=== PATIENT | female | born 2000 | race African-American/Black ===

== ENCOUNTER 2019-07-17 16:16 | Emergency (ER) | payer OTHER, SELFPAY ==
[2019-07-17 16:30] VITALS: BP 131/80; PULSE 97; RESP 16; TEMP 37.1; O2SAT 98
--- NOTE | 2019-07-17 16:30 | ED.GENADULT ---
HPI - General Adult General Chief complaint: Back Pain/Injury Stated complaint: Fall/Lower Back Pain Time Seen by Provider: 07/17/19 16:30 Source: patient Mode of arrival: ambulatory Limitations: no limitations History of Present Illness HPI narrative: 19-year-old female patient presents to the [facility] with complaints of left-sided low back pain. Patient states about 2 to 3 days ago she slipped and fell on some wooden stairs and hit her back. Patient states it is gotten progressively worse. Patient states she has tried a heating pad over the back but denies taking anything for pain. Patient denies any numbness or tingling down the legs. Patient denies any loss of bowel or bladder control. Related Data Home Medications Medication Instructions Recorded Confirmed levonorgestrel-ethinyl estrad 1 tablet DAILY 04/18/19 07/17/19 [Vienva] Allergies Allergy/AdvReac Type Severity Reaction Status Date / Time No Known Allergies Allergy Verified 07/17/19 16:30 Review of Systems Review of Systems: Narrative: CONSTITUTIONAL: Denies fever, chills, or sweats. EYES: Denies visual changes, redness, or discharge. ENT: Denies rhinorrhea, congestion, sore throat, or otalgia. CARDIOVASCULAR: Denies chest pain, palpitations, or edema. RESPIRATORY: Denies cough or dyspnea. GASTROINTESTINAL: Denies abdominal pain, nausea, vomiting, or diarrhea. GENITOURINARY: Denies dysuria or hematuria. SKIN: Denies rash or itching. MUSCULOSKELETAL: Denies back pain, joint pain, or myalgia. Positive for low back pain NEUROLOGIC: Denies headache, numbness, or weakness. PSYCHIATRIC: Denies anxiety or depression. PMFSH Social History Social History Gender identity (if verbalized by the patient): Female Exam Narrative: Exam Narrative: GENERAL: Well-appearing, well-nourished, and in no acute distress. HEAD: Normocephalic, atraumatic. EYES: PERRLA and EOMI. ENT: Nares clear, no rhinorrhea or epistaxis. Mucous membranes moist. NECK: Supple. No lymphadenopathy CHEST: Clear to auscultation. No respiratory distress. HEART: Regular rate and rhythm. No murmur heard. Normal peripheral pulses. ABDOMEN: Soft, nontender, nondistended, normal active bowel sounds. EXTREMITIES: Normal range of motion. No edema. BACK: Patient is able to ambulated without assistance. Pt is seated on the stretcher in no obvouis distress. No surface trauma noted. Slight muscle tenderness noted to the left lower lumbar area to Palpation. No spasm or mass. No step-offs or deformity noted to the cervical, thoracic or lumbar spine to firm Palpation at the midline. No CVA tenderness to percussion. No saddle anesthesia. ROM: able to stand erect. Normal flexion, extension, Lateral bending and rotation without limitation or complaint of pain. SKIN: Warm, dry, no rash. NEURO: No focal deficits. Alert and oriented x3. Course Vital Signs Vital signs: Vital Signs Temperature 37.1 C 07/17/19 16:30 Pulse Rate 97 07/17/19 16:30 Respiratory Rate 16 07/17/19 16:30 Blood Pressure 131/80 07/17/19 16:30 Pulse Oximetry 98 07/17/19 16:30 Temperature 37.1 C 07/17/19 16:30 Pulse Rate 97 07/17/19 16:30 Respiratory Rate 16 07/17/19 16:30 Blood Pressure 131/80 07/17/19 16:30 Pulse Oximetry 98 07/17/19 16:30 Medical Decision Making Differential Diagnosis Differential Diagnosis: Differential diagnosis: Acute musculoskeletal injury or exacerbation, neurological emergency, acute coronary syndrome, kidney stones, epidural abscess or hematoma,Cauda Equina Syndrome, herniation. Discussed with patient that she should try taking some Tylenol or ibuprofen as needed for the pain. Discussed with her she should also be doing some gentle stretching exercises along with a heating pad to the left lower back. Discussed with patient that there is no bony tenderness to the midline spine which is reassuring however she has worsening symptoms such as numbness and tingling down
== END 2019-07-17 16:42 | disposition home or self-care (01) ==
PROVIDERS: Emergency Provider Nurse Practitioner Family
DX: M54.5 Low back pain (principal)
CPT/HCPCS: 99211; G0463

== ENCOUNTER 2019-07-20 18:08 | Emergency (ER) | payer OTHER, SELFPAY ==
--- NOTE | 2019-07-20 18:14 | ED.URI ---
HPI - URI/Sore Throat General Chief Complaint: Upper Respiratory Infection Stated Complaint: Sore Throat Time Seen by Provider: 07/20/19 18:14 Source: patient and RN notes reviewed History of Present Illness HPI Narrative: Patient is a 19-year-old female that presents the urgent care with complaints of sore throat when talking and swallowing. Also reports of a stuffy nose. Patient states her symptoms started 3 days ago. Denies fever, chills, nausea, vomiting. Patient has used ibuprofen [id number] for her pain. No other acute complaints. No acute distress noted. Patient read the plan of care. Related Data Home Medications Medication Instructions Recorded Confirmed levonorgestrel-ethinyl estrad 1 tablet DAILY 04/18/19 07/20/19 [Vienva] Allergies Allergy/AdvReac Type Severity Reaction Status Date / Time No Known Allergies Allergy Verified 07/20/19 18:10 Review of Systems Review of Systems: Narrative: CONSTITUTIONAL: Denies fever, chills, or sweats. EYES: Denies visual changes, redness, or discharge. ENT: Reports of sore throat when talking on swallowing; reports a stuffy nose CARDIOVASCULAR: Denies chest pain, palpitations, or edema. RESPIRATORY: Denies cough or dyspnea. GASTROINTESTINAL: Denies abdominal pain, nausea, vomiting, or diarrhea. GENITOURINARY: Denies dysuria or hematuria. SKIN: Denies rash or itching. MUSCULOSKELETAL: Denies back pain, joint pain, or myalgia. NEUROLOGIC: Denies headache, numbness, or weakness. All other systems reviewed are negative, except as documented in HPI. [facility] Social History Social History Gender identity (if verbalized by the patient): Female Comments At the time of my signature, I reviewed and agree with the nursing past medical, surgical, social, and family history. There is no relevant family history pertinent to the patient complaint. Exam Narrative: Exam Narrative: GENERAL: This is a well-nourished, well-developed patient, in no apparent distress. HEAD: normocephalic, atraumatic. EYES: PERRL. Sclera clear/white. Vision is grossly intact. EARS: External ears normal, auditory canals clear and without drainage, TMs normal without perforation. Hearing grossly intact. NOSE: External nose normal with no obvious nasal discharge, nares without redness, no rhinorrhea. THROAT: Mucous membranes moist, moderate erythema noted posterior oropharynx with mild bilateral tonsillar edema without exudate or ulceration NECK: Neck supple CARDIOVASCULAR: Regular rate and rhythm without murmurs, gallops, or rubs. RESPIRATORY: Clear to auscultation. Breath sounds equal bilaterally. No wheezes, rales, or rhonchi. SKIN: warm, intact with no suspicious lesions or rash, good texture and turgor. NEURO: awake, alert, and oriented to person, place and time. There were no obvious focal neurologic abnormalities. EXTREMITIES: No clubbing, cyanosis, or edema. Course Vital Signs Vital signs: Vital Signs Temperature 98.6 F 07/20/19 18:19 Pulse Rate 87 07/20/19 18:19 Respiratory Rate 16 07/20/19 18:19 Blood Pressure 126/65 07/20/19 18:19 Pulse Oximetry 100 07/20/19 18:19 Temperature 98.6 F 07/20/19 18:19 Pulse Rate 87 07/20/19 18:19 Respiratory Rate 16 07/20/19 18:19 Blood Pressure 126/65 07/20/19 18:19 Pulse Oximetry 100 07/20/19 18:19 Reviewed MDM - URI/Sore Throat MDM Narrative Medical decision making narrative: Reviewed lab results with the patient. She is aware that her strep swab was positive. Advised patient to complete antibiotic regimen as prescribed. Make sure to eat and drink with medication. Treat fever and pain as needed with Tylenol/ibuprofen. Increase fluids and rest. Use humidifier at night. Change toothbrush within 2 to 3 days. Follow-up with PCP within 2 to 5 days or for worsening symptoms or failure to improve. Differential Diagnosis Differential diagnosis: Likely upper respiratory infection, otitis media, sinusitis, viral in
[2019-07-20 18:19] VITALS: BP 126/65; PULSE 87; RESP 16; TEMP 37; O2SAT 100
== END 2019-07-20 18:42 | disposition home or self-care (01) ==
PROVIDERS: Emergency Provider Nurse Practitioner Family
DX: J02.0 Streptococcal pharyngitis (principal)
CPT/HCPCS: 87880; 99213; G0463

== ENCOUNTER 2020-09-19 16:38 | Outpatient (RCR) | payer OTHER, SELFPAY ==
[2020-09-04 14:59] VITALS: BP 120/68; PULSE 99
[2020-09-15 18:03] VITALS: BP 115/70; PULSE 100
--- NOTE | ~2020-09-19 | US_ITS ---
EXAMINATION: US OB BPP wo non-stress EXAM DATE: 09/04/2020 14:17 INDICATION: Nonreactive stress test. 3rd trimester. TECHNIQUE: Pelvic obstetrical transabdominal sonogram was performed by a technologist. There are mu ltiple grayscale and Doppler images available for interpretation. There are no earlier studies of th is gestation for comparison. FINDINGS: There is a single fetus identified in vertex presentation with a heart rate of 132 beats pe r minute. The placenta is located in the posterior position. There is no sonographic evidence of ret roplacental hemorrhage identified. There is subjectively expected amount of amniotic fluid. BIOPHYSICAL PROFILE (performed by the technologist) breathing (30 sec sustained breathing in 30 minutes): 2 out of 2 movement (3 gross body movements in 30 minutes): 2 out of 2 tone (one episode of mnxwros-ohjpfvgur-ybgwhnv limb movement): 2 out of 2 Amniotic fluid pocket (2 cm): 2 out of 2 Total score: 8 out of 8 IMPRESSION: 1. Single fetus with heart rate of 132 bpm. 2. Normal biophysical profile score of 8 out of 8. Reviewed, dictated and finalized at location A.
[2020-09-19 17:31] VITALS: BP 98/70; PULSE 100
== END 2020-10-13 10:47 | disposition home or self-care (01) ==
LOC: ANHOBOP 16:38
PROVIDERS: Visit Provider Obstetrics & Gynecology
DX: O26.893 Other specified pregnancy related conditions, third trimester (principal); O09.293 Supervision of pregnancy with other poor reproductive or obstetric history, third trimester; Z3A.32 32 weeks gestation of pregnancy; Z3A.33 33 weeks gestation of pregnancy; Z3A.34 34 weeks gestation of pregnancy
CPT/HCPCS: 59025; 76819

== ENCOUNTER 2020-09-22 16:44 | Outpatient (RCR) | payer OTHER, SELFPAY ==
[2020-09-22 16:55] VITALS: BP 109/64; PULSE 82
== END 2020-10-31 07:39 | disposition home or self-care (01) ==
LOC: ANHOBOP 16:44
PROVIDERS: Visit Provider Obstetrics & Gynecology
DX: O26.03 Excessive weight gain in pregnancy, third trimester (principal); Z3A.34 34 weeks gestation of pregnancy
CPT/HCPCS: 59025

== ENCOUNTER 2020-10-17 00:07 | Observation (INO) | payer OTHER, SELFPAY ==
[2020-10-17 00:22] VITALS: TEMP 35.9; BMI 53.1
[2020-10-17 00:30] VITALS: BP 121/71; PULSE 106
--- NOTE | 2020-10-17 01:40 | OBADM ---
This patient, Prince Matos, admitted to the OB room Labor/Delivery/Recovery 105 for observation. Patient/family oriented to hospital policies and general routines including ID bracelet, bed and alarms, visiting hours, pain management, procedures, bathroom and other care routines, personal items, smoking policy, room service/diet, and visiting hours. Patient/Family are encouraged to report perceived risks to care and to ask questions if they do not understand what they are told or what they should do.
--- NOTE | 2020-11-09 11:18 | PM.OBTRLD ---
OB - Triage/Final Diagnosis Visit Information Comments/Additional reasons for admission: I have assessed the risk for this patient, Prince Matos, and determined that she would benefit from observation care. Final Diagnosis (1) False labor: Code(s): O47.9 - False labor, unspecified Status: Acute
== END 2020-10-17 03:00 | disposition home or self-care (01) ==
PROVIDERS: Admitting Provider Obstetrics & Gynecology; Visit Provider Obstetrics & Gynecology
DX: O47.1 False labor at or after 37 completed weeks of gestation (principal); Z3A.38 38 weeks gestation of pregnancy
CPT/HCPCS: G0378; G0379

== ENCOUNTER 2020-10-27 06:29 | Inpatient (IN) | payer OTHER, SELFPAY ==
[2020-10-27] VITALS (111 sets, daily range): BP systolic 76–134; BP diastolic 37–107; PULSE 54–186; RESP 18–20; TEMP 36.1–36.9; O2SAT 86–100; BMI 53.4
[2020-10-27 07:16] LABS: Basophils Percent Auto 0.1 % (0.2-1.2); Eosinophils Absolute Auto 0.1 K/mm3 (0-0.3); Eosinophils Percent Auto 0.9 % (0-4.4); Hematocrit 36.6 % (37.0-47.0); Hemoglobin 11.6 g/dL (12.0-15.0); Immature Granulocyte Absolute 0.02 K/mm3 (0.00-0.031); Immature Granulocyte Percent A 0.3 % (0-0.5); Lymphocytes Absolute Auto 1.61 K/mm3 (0.9-3.2); Lymphocytes Percent Auto 23.7 % (18.3-44.2); Mean Corpuscular HGB Conc 31.7 g/dl (32-36); Mean Corpuscular Hemoglobin 25.3 pg (26-34); Mean Corpuscular Volume 79.7 fl (80-100); Mean Platelet Volume 11.2 fl (7.4-10.4); Monocytes Absolute Auto 0.3 K/mm3 (0.1-0.6); Monocytes Percent Auto 4.7 % (2.6-8.5); Neutrophils Absolute Auto 4.8 K/mm3 (1.3-6.7); Neutrophils Percent Auto 70.3 % (45.5-73.1); Platelet Count Result 221 k/mm3 (150-375); Red Blood Count 4.59 M/mm3 (4.2-5.4); Red Cell Distribution Width 14.3 % (11.5-14.5); White Blood Count 6.8 K/mm3 (4.5-10.0)
[2020-10-27] MEDS: LACTATED RINGERS 1,000 ML 125 ML IV CONT ×3 (07:35→10:10)
[2020-10-27] MEDS: OXYTOCIN 30 UNITS/NS 500 ML 30 UNITS/500 ML BAG IV CONT (07:35)
--- NOTE | 2020-10-27 07:39 | LDADM ---
This patient, rPince Matos, was admitted to Labor/Delivery/Recovery 102 on 10/27/20 at 06:29. Plans for labor, pain management and were discussed with patient. Patient/family oriented to hospital policies and general routines including ID bracelet, bed and alarms, visiting hours, pain management, procedures, bathroom and other care routines, personal items, smoking policy, room service/diet and guest tray routines, infant security routines, and visiting hours. Patient/Family are encouraged to report perceived risks to care and to ask questions if they do not understand what they are told or what they should do. See OBIX for further documentation.
--- NOTE | 2020-10-27 07:42 | WPDOBADMIT ---
Obstetrics - Admit Note Admission Note: record reviewed. No pertinent additions to the history and/or any subsequent changes in the physical findings that are not consistent with the expected course of the were found.MIL chronic HTN SVE 3-4/70/-2 arom large amount of clear odorless fluid Additions to the history and/or subsequent changes in the physical findings follow. None.
--- NOTE | 2020-10-27 08:47 | WPDANESEPP ---
Anes - Eval Pre Procedure Procedure: Labor Epidural Date/Time: 10/27/20 08:47 Surgeon: blanquita Preop Diagnosis: Labpr Pain Pre Op Diagnosis: iol Patient Data Age: 20 Gender: F Height: 5 ft 3 in Weight: 137 kg Last Vital Signs Pulse 80 10/27/20 08:31 BP 110/61 10/27/20 08:31 Allergies Allergy/AdvReac Type Severity Reaction Status Date / Time No Known Allergies Allergy Verified 10/18/20 15:32 Home Medications Medication Instructions Recorded Confirmed Type Classic 1 tablet DAILY 10/17/20 10/27/20 History aspirin 81 mg PO DAILY 10/17/20 10/27/20 History Laboratory Tests 10/27/20 10/27/20 07:03 07:03 WBC 6.8 K/mm3 K/mm3 (4.5-10.0) RBC 4.59 M/mm3 M/mm3 (4.2-5.4) Hgb 11.6 g/dL L g/dL (12.0-15.0) Hct 36.6 % L % (37.0-47.0) MCV 79.7 fl L fl (80-100) MCH 25.3 pg L pg (26-34) MCHC 31.7 g/dl L g/dl (32-36) RDW 14.3 % % (11.5-14.5) Plt Count 221 k/mm3 k/mm3 (150-375) MPV 11.2 fl H fl (7.4-10.4) Immature Gran % (Auto) 0.3 % % (0-0.5) Neut % (Auto) 70.3 % % (45.5-73.1) Lymph % (Auto) 23.7 % % (18.3-44.2) Crenshaw % (Auto) 4.7 % % (2.6-8.5) Eos % (Auto) 0.9 % % (0-4.4) Baso % (Auto) 0.1 % L % (0.2-1.2) Lymph # (Auto) 1.61 K/mm3 K/mm3 (0.9-3.2) Crenshaw # (Auto) 0.3 K/mm3 K/mm3 (0.1-0.6) Eos # (Auto) 0.1 K/mm3 K/mm3 (0-0.3) Baso # (Auto) 0.0 K/mm3 K/mm3 (0.0-0.1) Abs Immat Gran (auto) 0.02 K/mm3 K/mm3 (0.00-0.031) Absolute Neuts (auto) 4.8 K/mm3 K/mm3 (1.3-6.7) Absolute Nucleated RBC 0.0 K/mm3 K/mm3 (0.0-0.012) Nucleated RBC % 0.0 % % (0.0-0.2) RPR Pending : gestational age (SEBASTIAN 10/28/20, ) Patient hx anesthesia problems: none Family hx anesthesia problems: none PMFSH Family History Family History Other Unknown family medical history Social History Social History Smoking status: Never smoker Substance use: never Gender identity (if verbalized by the patient): Female Spiritual care concerns: No Exam Day of Procedure 10/27/20 08:47 Patient weight: morbidly obese Heart: regular rate and rhythm Lungs: normal air movement Airway: Mallampati scale class II Neurological: alert and oriented
--- NOTE | 2020-10-27 14:06 | P.PCNOB_ITS ---
OB - Delivery Note Procedure Delivery date: 10/27/20 Intrapartal events: None Induction method: per pitocin protocol Delivery monitor: external FHT, external uterine and internal uterine Route of delivery: Laceration Description: Perineal - 1st Degree Delivery repair: vicryl Quantitative Blood Loss (ml): 187 Anesthesia type: Epidural Narrative: Decreased maternal push effort with delivery. Encouraged increased push effort and infant delivered spontaneously. Mother and baby in stable condit ion. Cord gasses collected and handed off to staff. Baby Date of : 10/27/20 Time of : 13:42 Weeks of gestation at delivery: 39 Weight (pounds): 8 Weight (ounces): 15 presentation: vertex position: Right Occiput Anterior Placenta delivery description: Spontaneous score one minute: 8 score five minutes: 9
[2020-10-27] MEDS: OXYTOCIN 30 UNITS/NS 500 ML 30 UNITS/500 ML BAG 125 UNITS IV CONT (14:29)
[2020-10-27] MEDS: ONDANSETRON INJ 4 MG/2 ML VIAL IV PUSH (15:15)
[2020-10-27] MEDS: WITCH HAZEL 40 PADS 1 PAD TOPICAL (16:34)
--- NOTE | 2020-10-27 16:47 | PC.NURSE ---
This patient, Prince Matos, was received from [place] on 10/27/20 at 1647. Patient/family oriented to unit policies and routines
[2020-10-27] MEDS: IBUPROFEN 600 MG TABLET PO (18:48)
[2020-10-28 04:03] VITALS: BP 119/71; PULSE 67; RESP 18; TEMP 36.3; O2SAT 100
[2020-10-28 04:53] LABS: Hematocrit 33.5 % (37.0-47.0); Hemoglobin 10.5 g/dL (12.0-15.0)
[2020-10-28 08:00] VITALS: BP 113/67; PULSE 71; RESP 18; TEMP 36.6
--- NOTE | 2020-10-28 08:48 | WPDANLDPN2 ---
Anes-Prog Note L&D Date/Time: 10/28/20 08:48 Comfortable throughout: labor and delivery Neuraxial method: epidural Epidural/Spinal procedure site: clean & non-tender Neuro status: Neuro function grossly intact. Cardiovascular status: normal Respiratory status: normal Airway patency: baseline Mental status: baseline Post-Op hydration status: normal Vital Signs: Last Vital Signs Temp 36.3 C L 10/28/20 04:03 Pulse 67 10/28/20 04:03 Resp 18 10/28/20 04:03 BP 119/71 10/28/20 04:03 Pulse Ox 100 10/28/20 04:03 Pain score (VAS): 0 I/O: Intake & Output 10/27/20 10/28/20 10/28/20 23:59 07:59 15:59 Output Total 170 Balance -170 Post-procedural complaints: none Patient feedback: Patient satisfied with anesthetic care.
[2020-10-28] MEDS: IBUPROFEN 600 MG TABLET PO (09:15)
[2020-10-28] MEDS: BENZOCAINE 20% AER SPR (*SP) 56 GM CAN 1 SPRAY TOPICAL (09:15)
[2020-10-28] MEDS: DOCUSATE SODIUM 100 MG CAPSULE PO (09:15)
[2020-10-28] MEDS: WITCH HAZEL 40 PADS 1 PAD TOPICAL (09:15)
--- NOTE | 2020-10-28 10:00 | PC.NURSE ---
Patient viewed the discharge video Mother & Baby Care, The First Two Weeks . Patient was given the opportunity and encouraged to ask questions. Patient verbalized understanding of information shared and has been given the mother/baby guide for home reference.
--- NOTE | 2020-10-28 10:52 | PM.OBPNVD ---
OB - PN: Subj Subjective Date/time seen: 10/28/20 10:52 Patient comments: no complaints baby status: doing well OB - PN: Obj Data Labs CBC & Chem 7: 10/28/20 04:21 Labs: Laboratory Results - last 24 hr 10/28/20 04:21 Hgb 10.5 L Hct 33.5 L OB - PN A/P Plan day: 1 Plan: routine care Time Spent With Patient Time: Total time spent is greater than 50% in coordination of care (as documented) at patient's floor/unit and/or counseling patient: Time with patient: less than 15 minutes Review of Systems Review of Systems: All systems reviewed & are unremarkable except as noted in HPI and below Exam Narrative: Exam Narrative: Fundus firm and vaginal flow controlled. No lower ext redness, warmth, or edema. Negative homans. Const: General: comfortable Chest: Breast/axilla inspection: normal inspection of the breasts Resp: Effort & Inspection: normal respiratory effort Cardio: Rate: regular rate GI: GI Palp: Yes Soft to palpation Psych: Appearance: grossly normal Affect: normal affect Attitude: cooperative Thought content: Yes Normal thought content present Judgement: Good judgement present (Psych)
--- NOTE | 2020-10-28 10:53 | PM.OBDSVD ---
DS: Admitting Diagnosis Admitting Diagnosis Admitting Diagnosis: Induction of labor OB - DS: Summary OB Procedures : None OB Procedures Intrapartum: Spontaneous Vag Delivery OB Procedures: : None Time Spent with Patient Time attestation: Total time spent providing and/or coordinating discharge services: DS: Data Data Completed and Pending Labs on day of discharge: Labs from last 24 hours 10/28/20 04:21 Hgb 10.5 L Hct 33.5 L Discharge Plan Discharge Attending physician on discharge: Lisa Castorena Discharging Clinician: Lisa Castorena Patient Disposition: Home, Self-Care Activity: pelvic rest Diet: as tolerated Patient Instructions: Antibiotic Form Stand Alone Forms: General Discharge Information Follow-up/Referrals: Lisa Castorena CNM [Certified Nurse Ken[employer] Writer/Runner] - Discharge Medications: Continued aspirin 81 mg Tablet,Delayed Release (Dr/Ec) 81 mg PO DAILY RF: 0 Classic 28 mg iron- 800 mcg Tablet 1 tablet DAILY RF: 0 Date of admission: 10/27/20 06:29 Primary Care Provider: PHYSICIAN,PROPERTY PRESERVATION SPECIALIST Admitting Provider: Duran Snell Attending physician on admission: Duran Snell Condition: Stable
[2020-10-28 13:00] VITALS: BP 110/72; PULSE 70; RESP 18; TEMP 36.7
--- NOTE | 2020-10-28 15:22 | PC.NURSE ---
Self care and infant care discharge instructions given to pt. including follow up visit date and time. Mother verbalized understanding. No questions or concerns voiced. Very pleasant. FOB at side.
[2020-10-30 08:01] LABS: Rapid Plasma Reagin Non-Reactive (NonReactive)
== END 2020-10-28 15:45 | disposition home or self-care (01) | DRG 560 ==
LOC: ANHLDR 06:33 → ANHOB2 16:56
PROVIDERS: Advanced Practice Midwife; Admitting Provider Obstetrics & Gynecology; Visit Provider Obstetrics & Gynecology
DX: O10.92 Unspecified pre-existing hypertension complicating childbirth (principal); O70.0 First degree perineal laceration during delivery; Z3A.39 39 weeks gestation of pregnancy; Z37.0 Single live birth
CPT/HCPCS: 36415; 85014; 85018; 85025; 86592; 86850; 86900; 86901; A9270; J2405; J2590; J2795; J7120

== ENCOUNTER 2022-01-03 08:36 | Emergency (ER) | payer OTHER, SELFPAY ==
--- NOTE | 2022-01-03 08:37 | ED.URI ---
HPI - URI/Sore Throat General Chief Complaint: Upper Respiratory Infection Stated Complaint: uri Time Seen by Provider: 01/03/22 08:37 Source: patient Mode of arrival: ambulatory Limitations: no limitations History of Present Illness HPI Narrative: Ms. Bailey is a 21-year-old female patient presenting to the clinic today with complaints of possible upper respiratory infection. She reports she has a sore throat, swollen lymph nodes, and right ear pain since Friday. She reports she is done multiple COVID test and they have all been negative. Last COVID test was done last night. She denies any known exposure to anybody with COVID. Has had low-grade temp and chills MD elicited complaint: sore throat and nasal congestion Related Data Allergies Allergy/AdvReac Type Severity Reaction Status Date / Time No Known Allergies Allergy Verified 01/03/22 08:47 Review of Systems Review of Systems: Pertinent positives per HPI. Patient denies any rash, headache, visual changes, dizziness, cough, runny nose, shortness of breath, chest pain, palpitations, nausea, vomiting, diarrhea, constipation, abdominal pain, or any urinary issues. [facility] Family History Family History Other Unknown family medical history Social History Social History Smoking status: Never smoker Substance use: never Gender identity (if verbalized by the patient): Female Spiritual care concerns: No Comments At the time of my signature, I reviewed and agree with the nursing past medical, surgical, social, and family history. There is no relevant family history pertinent to the patient complaint. Exam Narrative: General: Well-developed, morbidly obese, in no apparent distress Head: Normocephalic, atraumatic Eyes: Pupils equally round and reactive to light bilaterally, EOM intact, sclera and conjunctive clear, no discharge, lids normal Ears: TMs intact and dull, ear canals clear, no drainage, grossly hearing normal. Nose: Nares patent, no discharge, no inflammation, no sinus tenderness. Mouth: Oropharynx without lesions or masses, good dentition, MMM. Oropharynx red and swollen Neck: Supple, trachea midline, positive enlargement of anterior cervical nodes, no thyroid masses or goiter palpable. Cardio: Regular rate and rhythm, s1 and s2 normal, no murmur appreciated. Resp: Clear to auscultation bilaterally anteriorly and posteriorly, no rhonchi, rales, wheezing or rubs Course Course Emergency Course: Portions of this record may have been created with voice recognition software. Level of Care: Express Care Visit Vital Signs Vital signs: Vital signs reviewed MDM - URI/Sore Throat MDM Narrative Medical decision making narrative: At the time of visit patient is resting comfortably on the exam table. Strep screen was obtained and was positive patient reporting pain 8 out of 10 currently. 800 mg of liquid ibuprofen was given to the patient. Prescriptions for amoxicillin liquid and viscous lidocaine liquid sent to her pharmacy. Supportive measures were discussed and patient voiced understanding of discharge instructions and agrees to the treatment plan. Differential Diagnosis Differential diagnosis: Likely upper respiratory infection, sinusitis, viral infection, influenza, pharyngitis and other (COVID) Discharge Plan Discharge Clinical Impression: Strep pharyngitis Patient Disposition: Home, Self-Care Condition: Stable Instructions: Antibiotic Form, Strep Throat (ED) Additional Instructions: Strep testing positive in the clinic today Ibuprofen 800mg po given in the clinic today. Change toothbrush in 24 hours after initiation of antibiotic Take prescription medications only as prescribed- Amoxicillin and viscous lidocaine Increase fluids and stay well hydrated Tylenol/motrin for pain/fever Flonase and
[2022-01-03 08:45] VITALS: BP 123/70; PULSE 80; RESP 16; TEMP 36.3; O2SAT 100
[2022-01-03] MEDS: IBUPROFEN SUSPENSION 200 MG/10 ML UDC 800 MG PO (09:02)
== END 2022-01-03 09:10 | disposition home or self-care (01) ==
LOC: EXPCOLL 08:39
PROVIDERS: Emergency Provider Nurse Practitioner Family
DX: J02.0 Streptococcal pharyngitis (principal); Z86.16 Personal history of COVID-19
CPT/HCPCS: 87880; 99213; A9270; G0463

== ENCOUNTER 2022-07-17 22:00 | Observation (INO) | payer OTHER, SELFPAY ==
--- NOTE | ~2022-07-17 | US_ITS ---
EXAMINATION: US renal BI DATE: 07/18/2022 07:40 INDICATION: Left flank pain TECHNIQUE: Multiple grayscale and Doppler ultrasound images of the kidneys were obtained. COMPARISON: None. FINDINGS: The right kidney measures 11.4 x 6.4 x 6.2 cm. The left kidney measures 11.9 x 7.1 x 6.2 cm . The kidneys demonstrate normal parenchymal echogenicity. There is mild bilateral hydronephrosis. Th e bladder is normal. Bilateral ureteral jets are seen. IMPRESSION: 1. Mild bilateral hydronephrosis. Reviewed, dictated and finalized at location L. DETAILER
[2022-07-17 22:20] VITALS: BP 116/66; PULSE 84
[2022-07-17 22:50] LABS: Appearance Urine Clear (Clear); Bilirubin Urine Negative (Negative); Blood Urine 3+ (Negative); Color Urine Yellow (Yellow); Glucose Urine UA Negative (Negative); Ketones Urine Negative (Negative); Leukocyte Esterase Ur 2+ LEU/UL (Negative); Nitrate Urine Negative (Negative); Protein Urine 3+ mg/dL (Negative); Specific Grav Ur >= 1.030 (1.001-1.035)
[2022-07-17 22:53] LABS: Bacteria Urine 1+ /hpf; RBC Urine >75 /hpf (0-2); Squamous Epithelial Cell Urine Many /hpf (Few); WBC Clumps Urine Present /HPF; WBC Urine >75 /hpf
[2022-07-17 22:55] LABS: Add Urine Microscopic? YES
[2022-07-17] MEDS: LACTATED RINGERS 1,000 ML 999 ML IV CONT (23:40)
[2022-07-17] MEDS: fentaNYL CITRATE INJ (*CRX) 100 MCG/2 ML VIAL 50 MCG IV PUSH (23:58)
[2022-07-18 00:21] LABS: Basophils Percent Auto 0.1 % (0.2-1.2); Eosinophils Absolute Auto 0.2 K/mm3 (0-0.3); Hemoglobin 11.9 g/dL (12.0-15.0); Immature Granulocyte Absolute 0.03 K/mm3 (0.00-0.031); Immature Granulocyte Percent A 0.3 % (0-0.5); Lymphocytes Absolute Auto 1.97 K/mm3 (0.9-3.2); Lymphocytes Percent Auto 21.6 % (18.3-44.2); Mean Corpuscular HGB Conc 32.2 g/dl (32-36); Mean Corpuscular Hemoglobin 26.3 pg (26-34); Mean Corpuscular Volume 81.9 fl (80-100); Mean Platelet Volume 10.7 fl (7.4-10.4); Monocytes Absolute Auto 0.5 K/mm3 (0.1-0.6); Monocytes Percent Auto 5.4 % (2.6-8.5); Neutrophils Absolute Auto 6.4 K/mm3 (1.3-6.7); Neutrophils Percent Auto 70.6 % (45.5-73.1); Platelet Count Result 252 k/mm3 (150-375); Red Blood Count 4.52 M/mm3 (4.2-5.4); Red Cell Distribution Width 14.2 % (11.5-14.5); White Blood Count 9.1 K/mm3 (4.5-10.0)
[2022-07-18] MEDS: LACTATED RINGERS 1,000 ML 125 ML IV CONT (01:25)
--- NOTE | 2022-07-18 01:31 | OBADM ---
This patient, Prince Matos, admitted to the OB room OB Post 113 for observation. Patient/family oriented to hospital policies and general routines including ID bracelet, bed and alarms, visiting hours, pain management, procedures, bathroom and other care routines, personal items, smoking policy, room service/diet, and visiting hours. Patient/Family are encouraged to report perceived risks to care and to ask questions if they do not understand what they are told or what they should do.
[2022-07-18] MEDS: HYDROcodone/acetaminophen (*CRX) 5-325 MG TABLET 1 TAB PO ×3 (04:06→08:59)
[2022-07-18 07:48] VITALS: BP 85/47; PULSE 66
[2022-07-18 07:55] VITALS: BP 115/57; PULSE 73; TEMP 36.6
--- NOTE | 2022-07-18 08:31 | PM.IMHP ---
H&P: HPI History of Present Illness Date/Time: 07/18/22 08:31 Chief Complaint: flank pain Narrative: 22-year-old female at 20 weeks gestation with flank pain. She was admitted for observation. She was observed for a period time. Ultrasound performed of her bilateral ureters. There is no hydronephrosis or hydroureter for . There is a very positive urinalysis. With leukocytes and blood. We agreed to treat. She is comfortable now. Her pain is being controlled with hydrocodone. we will discuss denies any nausea vomiting, fever, chills. She denies any chest pain or shortness of breath. She will continue Macrobid at home for the treatment of urinary tract infection. Review of Systems Review of Systems: All systems reviewed & are unremarkable except as noted in HPI and below Constitutional: Constitutional: Denies chills, Denies fatigue, Denies fever(s) and Denies weakness Eyes: Eyes: Denies blurry vision, Denies change in vision, Denies loss of peripheral vision, Denies loss of vision, Denies other visual disturbances and Denies eye pain ENT: Denies vertigo, Denies dizziness, Denies hearing loss, Denies mouth pain, Denies nasal obstruction, Denies neck mass and Denies neck pain Cardiovascular: Cardiovascular: Denies chest pain, Denies diaphoresis, Denies syncope, Denies leg edema and Denies dyspnea Respiratory: Respiratory: Denies chest congestion, Denies cough, Denies hemoptysis, Denies dyspnea and Denies wheezing Gastrointestinal: Gastrointestinal: Denies abdominal pain, Denies constipation, Denies diarrhea, Denies nausea and Denies vomiting Genitourinary: Genitourinary: Denies hematuria, Denies change in libido, Denies nocturia, Denies genital lesions, Denies flank pain and Denies urinary urgency Musculoskeletal: Musculoskeletal: Denies abnormal gait, Denies back pain, Denies myalgias, Denies arthralgias, Denies joint swelling, Denies muscle weakness and Denies neck pain Integumentary/Breasts: Skin/Breast: Denies swelling, Denies breast pain, Denies breast mass, Denies dry skin, Denies nipple discharge, Denies unusual bruising and Denies jaundice Neurologic: Denies Neuro-related abnormal movements, Denies Abnormal speech present, Denies abnormal gait, Denies behavioral changes, Denies confusion, Denies vertigo, Denies dizziness, Denies syncope, Denies loss of vision, Denies memory loss, Denies convulsions and Denies weakness Psychiatric: Psychiatric: Denies abnormal sleep pattern, Denies behavioral changes, Denies change in libido, Denies confusion, Denies depression, Denies anhedonia and Denies memory loss Endocrine: Endocrine: Reports no additional endocrine complaints, Denies change in libido and Denies fatigue Hematologic/Lymphatic: Hematologic/Lymphatic: Reports no additional hematologic/lymphatic complaints Allergic/Immunologic: Allergic/Immunologic: Reports no additional allergic/immunologic complaints and Denies wheezing [facility]LY [facility] Family History Family History Other Unknown family medical history Social History Social History Smoking status: Never smoker Substance use: never Gender identity (if verbalized by the patient): Female Spiritual care concerns: No Meds Home Medications and Allergies Home Medications Medication Instructions Recorded Confirmed Type amoxicillin 400 mg/5 mL oral 500 mg (6.25 mL) PO Q12H 10 days 01/03/22 Rx suspension #125 mL lidocaine HCl 2 % mucosal solution 1 applic mucous membrane QID PRN 01/03/22 Rx (Lidocaine Viscous) pain 7 days #100 mL Allergies Allergy/AdvReac Type Severity Reaction Status Date / Time No Known Allergies Allergy Verified 01/03/22 08:47 Vital Signs Vital Signs - 24 hr 07/17/22 22:20 07/18/22 07:48 07/18/22 07:55 Temperature 97.8 F Pulse Rate 84 66 73 Blood Pressure 116/66 85/47 L 115/57 L Oxyg
--- NOTE | 2022-08-08 21:54 | PM.OBTRLD ---
OB - Triage/Final Diagnosis Visit Information Comments/Additional reasons for admission: I have assessed the risk for this patient, Prince Matos, and determined that she would benefit from observation care. Evaluation Laboratory results: Laboratory Tests 07/17/22 07/18/22 22:34 00:05 WBC 9.1 RBC 4.52 Hgb 11.9 L Hct 37.0 MCV 81.9 MCH 26.3 MCHC 32.2 RDW 14.2 Plt Count 252 MPV 10.7 H Immature Gran % (Auto) 0.3 Neut % (Auto) 70.6 Lymph % (Auto) 21.6 [place] % (Auto) 5.4 Eos % (Auto) 2.0 Baso % (Auto) 0.1 L Lymph # (Auto) 1.97 [place] # (Auto) 0.5 Eos # (Auto) 0.2 Baso # (Auto) 0.0 Abs Immat Gran (auto) 0.03 Absolute Neuts (auto) 6.4 Absolute Nucleated RBC 0.0 Nucleated RBC % 0.0 Urine Color Yellow Urine Appearance Clear Urine pH 7.0 Ur Specific [place] >= 1.030 Urine Protein 3+ H Urine Glucose (UA) Negative Urine Ketones Negative Ur Blood (Man) 3+ H Urine Nitrate Negative Urine Bilirubin Negative Urine Urobilinogen 1.0 Leukocyte Esterase Rfl 2+ H Urine RBC >75 H Urine WBC >75 H Urine WBC Clumps Present H Ur Squamous Epith Cells Many H Urine Bacteria 1+ H Final Diagnosis (1) Flank pain: Code(s): R10.9 - Unspecified abdominal pain Status: Acute
== END 2022-07-18 09:10 | disposition home or self-care (01) ==
PROVIDERS: Advanced Practice Midwife; Admitting Provider Obstetrics & Gynecology; Visit Provider Obstetrics & Gynecology
DX: O26.892 Other specified pregnancy related conditions, second trimester (principal); R10.9 Unspecified abdominal pain; O99.891 Other specified diseases and conditions complicating pregnancy; N39.0 Urinary tract infection, site not specified; B96.89 Other specified bacterial agents as the cause of diseases classified elsewhere; Z3A.20 20 weeks gestation of pregnancy
CPT/HCPCS: 36415; 76775; 81001; 85025; 87077; 87086; 87088; 87186; 96374; A9270; G0378; G0379; J0696; J3010; J7120

== ENCOUNTER 2022-09-29 08:21 | Emergency (ER) | payer OTHER, SELFPAY ==
[2022-09-29 08:25] VITALS: BP 119/70; PULSE 102; RESP 20; TEMP 36.5; O2SAT 99
--- NOTE | 2022-09-29 08:35 | ED.GENADULT ---
HPI - General Adult General Chief complaint: Extremity Problem,Nontraumatic Stated complaint: Right Ankle Pain/High B/P Time Seen by Provider: 09/29/22 08:25 Source: patient, RN notes reviewed and old records reviewed Mode of arrival: ambulatory Limitations: no limitations History of Present Illness HPI narrative: 22-year-old female who is [address] Snell Presents for right ankle pain laterally. Denies any injury. Also states that she checked her blood pressure at her mom's house this morning reports that it was 200 systolic. Here her blood pressure was 119/70. Patient denies any injury. Onset (ago): day(s) (3) Treatments prior to arrival: other (Tylenol) Related Data Home Medications Medication Instructions Recorded Confirmed Vitamin 1 tab-cap PO DAILY 09/29/22 09/29/22 aspirin 81 mg tablet 81 mg PO DAILY 09/29/22 09/29/22 Allergies Allergy/AdvReac Type Severity Reaction Status Date / Time No Known Allergies Allergy Verified 09/29/22 08:39 Review of Systems Review of Systems: All systems reviewed & are unremarkable except as noted in HPI and below Constitutional: Constitutional: Reports no additional constitutional complaints Eyes: Eyes: Reports no additional eye complaints ENT: Reports system reviewed and no additional complaints, except as documented Cardiovascular: Cardiovascular: Reports no additional cardiovascular complaints, Denies chest pain and Denies dyspnea Respiratory: Respiratory: Reports no additional respiratory complaints, Denies chest congestion, Denies cough and Denies dyspnea Gastrointestinal: Gastrointestinal: Reports no additional gastrointestinal complaints, Denies abdominal pain, Denies nausea and Denies vomiting Musculoskeletal: Musculoskeletal: Reports joint swelling (Right lateral) Integumentary/Breasts: Skin/Breast: Reports system reviewed and no additional complaints, except as docu Neurologic: Reports system reviewed and no additional complaints, except as documented Psychiatric: Psychiatric: Reports no additional psychiatric complaints Allergic/Immunologic: Allergic/Immunologic: Reports no additional allergic/immunologic complaints [facility] Family History Family History Other Unknown family medical history Social History Social History Smoking status: Never smoker Substance use: never Gender identity (if verbalized by the patient): Female Spiritual care concerns: No Comments At the time of my signature, I reviewed and agree with the nursing past medical, surgical, social, and family history. There is no relevant family history pertinent to the patient complaint. Exam Const: General: cooperative, healthy appearing, comfortable, no acute distress, well developed, alert and well nourished Nutritional Appearance: well nourished and obese Orientation/consciousness: patient oriented x3 Limitations: no limitations HENMT: Head: normal to inspection Ears: hearing grossly normal bilaterally and external ears normal Face/Nose/Sinus: Normal external nose present, Normal nares present, Normal nasal mucous membranes and turbinates present and normal facial exam Face and sinus: normal facial exam Mouth: Yes Normal oral and palatal mucosa present, Yes lip normal and Yes moist mucous membranes Throat: posterior oropharynx normal and uvula midline Eyes: General: appearance normal, both eyes and all related structures Alignment and Position: alignment normal Periorbital: periorbital findings normal Conjunctivae: conjunctivae normal Pupils: Equal, round and reactive pupils present EOM: EOMs intact bilaterally Neck: Neck: normal visual inspection, full ROM, no lymphadenopathy and no meningeal signs Chest: Chest palpation & inspection: normal inspection of the chest Resp: Effort & Inspection: normal respiratory effort and able to s
== END 2022-09-29 09:00 | disposition home or self-care (01) ==
PROVIDERS: Emergency Provider Nurse Practitioner; PCP Physician Assistant
DX: O9A.213 Injury, poisoning and certain other consequences of external causes complicating pregnancy, third trimester (principal); Z3A.31 31 weeks gestation of pregnancy; S93.401A Sprain of unspecified ligament of right ankle, initial encounter; X58.XXXA Exposure to other specified factors, initial encounter; Z79.82 Long term (current) use of aspirin
CPT/HCPCS: 99212; G0463

== ENCOUNTER 2022-11-11 14:25 | Outpatient (CLI) | payer OTHER, SELFPAY ==
[2022-11-11 14:59] VITALS: BP 107/45; PULSE 88
[2022-11-11 15:08] LABS: Basophils Percent Auto 0.1 % (0.2-1.2); Eosinophils Absolute Auto 0.1 K/mm3 (0-0.3); Eosinophils Percent Auto 1.9 % (0-4.4); Hematocrit 37.8 % (37.0-47.0); Hemoglobin 11.9 g/dL (12.0-15.0); Immature Granulocyte Absolute 0.02 K/mm3 (0.00-0.031); Immature Granulocyte Percent A 0.3 % (0-0.5); Lymphocytes Absolute Auto 1.38 K/mm3 (0.9-3.2); Lymphocytes Percent Auto 18.4 % (18.3-44.2); Mean Corpuscular HGB Conc 31.5 g/dl (32-36); Mean Corpuscular Hemoglobin 26.1 pg (26-34); Mean Corpuscular Volume 82.9 fl (80-100); Mean Platelet Volume 10.9 fl (7.4-10.4); Monocytes Absolute Auto 0.5 K/mm3 (0.1-0.6); Monocytes Percent Auto 6.3 % (2.6-8.5); Neutrophils Absolute Auto 5.5 K/mm3 (1.3-6.7); Platelet Count Result 227 k/mm3 (150-375); Red Blood Count 4.56 M/mm3 (4.2-5.4); Red Cell Distribution Width 14.4 % (11.5-14.5); White Blood Count 7.5 K/mm3 (4.5-10.0)
[2022-11-11 15:14] LABS: Appearance Urine Clear (Clear); Bilirubin Urine Negative (Negative); Blood Urine Negative (Negative); Color Urine Yellow (Yellow); Glucose Urine UA Negative (Negative); Ketones Urine Negative (Negative); Leukocyte Esterase Ur Negative LEU/UL (NEGATIVE); Nitrate Urine Negative (Negative); Protein Urine Negative (Negative); Specific Grav Ur 1.022 (1.001-1.035); Urobilinogen Urine 0.2 mg/dL (<2.0); pH Urine 6.5 (5.0-9.0)
[2022-11-11 15:16] VITALS: BP 97/58; PULSE 82
[2022-11-11 15:19] LABS: Add Urine Microscopic? NO
[2022-11-11 15:22] LABS: Alanine Aminotransferase 22 U/L (6-35); Albumin Level 3.4 g/dL (3.5-5.1); Alkaline Phosphatase 213 U/L (38-126); Anion Gap 4 mmol/L (8-16); Aspartate Amino Transferase 23 U/L (14-36); Bilirubin,Total 0.2 mg/dL (0.2-1.3); Blood Urea Nitrogen 8 mg/dL (7-17); Calcium 8.1 mg/dL (8.4-10.2); Carbon Dioxide 24 mmol/L (22-30); Chloride 107 mmol/L (98-107); Estimated Glomerular Filt Rate > 60; Glucose 91 mg/dL (65-110); Potassium 3.7 mmol/L (3.4-5.0); Sodium 135 mmol/L (137-145); Uric Acid 4.4 mg/dL (2.5-7.5)
[2022-11-11 15:31] VITALS: BP 105/55; PULSE 81
[2022-11-11 15:42] LABS: Creatinine Urine 261.1 mg/dL
[2022-11-11 15:46] VITALS: BP 115/61; PULSE 75
[2022-11-11 16:01] VITALS: BP 122/61; PULSE 76
[2022-11-11] MEDS: ACETAMINOPHEN 500 MG TABLET 1000 MG PO (16:29)
[2022-11-11 16:34] LABS: Total Protein Urine Random < 5 mg/dL; Ur Ttl Prot Creatinine Ratio < 0.02 mg/mg (0-0.20)
[2022-11-11 16:43] VITALS: BP 122/68; PULSE 88
== END 2022-11-11 16:47 | disposition home or self-care (01) ==
LOC: ANHOBOP 14:29 → ANHOBPP 14:30
PROVIDERS: PCP Physician Assistant; Visit Provider Obstetrics & Gynecology
DX: O13.9 Gestational [pregnancy-induced] hypertension without significant proteinuria, unspecified trimester (principal); Z3A.00 Weeks of gestation of pregnancy not specified
CPT/HCPCS: 36415; 59025; 80053; 81003; 82570; 84156; 84550; 85025; 87086; 99199; A9270

== ENCOUNTER 2022-11-27 06:32 | Inpatient (IN) | payer OTHER, SELFPAY ==
[2022-11-27] VITALS (70 sets, daily range): BP systolic 94–123; BP diastolic 39–97; PULSE 56–138; RESP 16–18; TEMP 36.6–36.9; O2SAT 98–100; BMI 51.0
--- NOTE | 2022-11-27 06:53 | LDADM ---
This patient, Prince Matos, was admitted to Labor/Delivery/Recovery 104 on 11/27/22 at 06:32. Plans for labor, pain management and were discussed with patient. Patient/family oriented to hospital policies and general routines including ID bracelet, bed and alarms, visiting hours, pain management, procedures, bathroom and other care routines, personal items, smoking policy, room service/diet and guest tray routines, infant security routines, and visiting hours. Patient/Family are encouraged to report perceived risks to care and to ask questions if they do not understand what they are told or what they should do. See OBIX for further documentation.
[2022-11-27 07:16] LABS: Basophils Percent Auto 0.1 % (0.2-1.2); Eosinophils Absolute Auto 0.1 K/mm3 (0-0.3); Eosinophils Percent Auto 1.3 % (0-4.4); Hematocrit 37.6 % (37.0-47.0); Hemoglobin 12.1 g/dL (12.0-15.0); Immature Granulocyte Absolute 0.02 K/mm3 (0.00-0.031); Immature Granulocyte Percent A 0.3 % (0-0.5); Lymphocytes Absolute Auto 1.89 K/mm3 (0.9-3.2); Lymphocytes Percent Auto 27.4 % (18.3-44.2); Mean Corpuscular HGB Conc 32.2 g/dl (32-36); Mean Corpuscular Hemoglobin 26.5 pg (26-34); Mean Corpuscular Volume 82.5 fl (80-100); Mean Platelet Volume 10.9 fl (7.4-10.4); Monocytes Absolute Auto 0.3 K/mm3 (0.1-0.6); Monocytes Percent Auto 3.8 % (2.6-8.5); Neutrophils Absolute Auto 4.6 K/mm3 (1.3-6.7); Neutrophils Percent Auto 67.1 % (45.5-73.1); Platelet Count Result 219 k/mm3 (150-375); Red Blood Count 4.56 M/mm3 (4.2-5.4); Red Cell Distribution Width 14.6 % (11.5-14.5); White Blood Count 6.9 K/mm3 (4.5-10.0)
[2022-11-27] MEDS: OXYTOCIN 30 UNITS/NS 500 ML 30 UNITS/500 ML BAG IV CONT (08:15)
[2022-11-27] MEDS: LACTATED RINGERS 1,000 ML 125 ML IV CONT ×2 (08:15→11:38)
--- NOTE | 2022-11-27 08:37 | WPDOBADMIT ---
Obstetrics - Admit Note Admission Note: record reviewed. No pertinent additions to the history and/or any subsequent changes in the physical findings that are not consistent with the expected course of the were found. IOL, SVE /-2, AROM small amount of clear, odorless fluid,anticipate vaginal delivery Additions to the history and/or subsequent changes in the physical findings follow. None.
[2022-11-27 09:02] LABS: Rapid Plasma Reagin Non-Reactive (NonReactive)
[2022-11-27] MEDS: fentaNYL CITRATE INJ (*CRX) 100 MCG/2 ML VIAL IV PUSH (09:52)
[2022-11-27] MEDS: fentaNYL CITRATE INJ (*CRX) 100 MCG/2 ML VIAL 50 MCG IV PUSH (11:32)
--- NOTE | 2022-11-27 11:44 | WPDANESEPP ---
Anes - Eval Pre Procedure Procedure: Labor epidural Date/Time: 11/27/22 11:44 Surgeon: Alis Preop Diagnosis: Abdominal pain with contractions Pre Op Diagnosis: IOL Patient Data Age: 22 Gender: F Height: 1.63 m Weight: 135 kg Last Vital Signs Temp 97.9 F 11/27/22 11:00 Pulse 73 11/27/22 10:47 Resp 16 11/27/22 11:00 BP 103/48 L 11/27/22 10:47 O2 Del Method Room Air 11/27/22 06:53 Allergies Allergy/AdvReac Type Severity Reaction Status Date / Time No Known Allergies Allergy Verified 09/29/22 08:39 Home Medications Medication Instructions Recorded Confirmed Type Vitamin 1 tab-cap PO DAILY 09/29/22 11/27/22 History aspirin 81 mg tablet 81 mg PO DAILY 09/29/22 11/27/22 History cetirizine 10 mg tablet (Zyrtec) 10 mg PO DAILY 11/25/22 11/25/22 History Laboratory Tests 11/27/22 06:45 WBC 6.9 K/mm3 (4.5-10.0) RBC 4.56 M/mm3 (4.2-5.4) Hgb 12.1 g/dL (12.0-15.0) Hct 37.6 % (37.0-47.0) MCV 82.5 fl (80-100) MCH 26.5 pg (26-34) MCHC 32.2 g/dl (32-36) RDW 14.6 H % (11.5-14.5) Plt Count 219 k/mm3 (150-375) MPV 10.9 H fl (7.4-10.4) Immature Gran % (Auto) 0.3 % (0-0.5) Neut % (Auto) 67.1 % (45.5-73.1) Lymph % (Auto) 27.4 % (18.3-44.2) [place] % (Auto) 3.8 % (2.6-8.5) Eos % (Auto) 1.3 % (0-4.4) Baso % (Auto) 0.1 L % (0.2-1.2) Lymph # (Auto) 1.89 K/mm3 (0.9-3.2) [place] # (Auto) 0.3 K/mm3 (0.1-0.6) Eos # (Auto) 0.1 K/mm3 (0-0.3) Baso # (Auto) 0.0 K/mm3 (0.0-0.1) Abs Immat Gran (auto) 0.02 K/mm3 (0.00-0.031) Absolute Neuts (auto) 4.6 K/mm3 (1.3-6.7) Absolute Nucleated RBC 0.0 K/mm3 (0.0-0.012) Nucleated RBC % 0.0 % (0.0-0.2) RPR Non-reactive (NonReactive) Blood Type O Positive Antibody Screen Negative : gestational age HCG: positive Patient hx anesthesia problems: none Family hx anesthesia problems: none Results Review: All pre-operative results and documents have been reviewed as part of the pre-operative evaluation. [facility] Past Medical History Medical History (Updated 11/27/22 @ 11:45 by Balwinder Beasley CRNA) Morbid obesity and not yet delivered Family History Family History Other Unknown family medical history Social History Social History Smoking status: Never smoker Substance use: never Lack of Transportation: No Lack of Food: Never True Current Housing: I Have Housing Concerned About Future Housing: No Difficulty Paying Gas/Electric Bills: No Difficulty Paying for Meds: No Currently Unemployed: No Education: Trade/Vocational Certificate Difficulty w/ Childcare or Family Care: No Gender identity (if verbalized by the patient): Female Spiritual care concerns: No Exam Day of Procedure 11/27/22 11:44 Patient weight: super morbidly obese Lungs: clear to auscultation Neurological: alert and oriented
--- NOTE | 2022-11-27 14:02 | PM.OBPRVD ---
OB - Delivery Note Procedure Delivery date: 11/27/22 Procedure: Induction method: AROM and Per Pitocin Protocol Delivery monitor: External FHT and Internal Uterine Route of delivery: Laceration Description: Perineal - 1st Degree Delivery repair: vicryl Specimen: No Quantitative Blood Loss (ml): 180 Anesthesia type: Epidural Disposition: Floor [place] Baby Date of : 11/27/22 Time of : 13:52 Weeks of gestation at delivery: 39 Infant gender: Male Weight (pounds): 8 Weight (ounces): 11 presentation: vertex position: Right Occiput Anterior Placenta delivery description: Spontaneous Cord Vessel Description: 3 Vessels, Nuchal Cord, Loose (x1) and Clamped/Cut score one minute: 8 score five minutes: 9
[2022-11-27] MEDS: OXYTOCIN 30 UNITS/NS 500 ML 30 UNITS/500 ML BAG 125 UNITS IV CONT (14:23)
[2022-11-27] MEDS: miSOPROStol 200 MCG TABLET 1000 MCG RECTAL (15:07)
[2022-11-27] MEDS: ONDANSETRON INJ 4 MG/2 ML VIAL IV PUSH (15:40)
[2022-11-27] MEDS: WITCH HAZEL 40 PADS 1 PAD TOPICAL (17:17)
--- NOTE | 2022-11-27 17:29 | OBPPTRN ---
Patient transferred to post room #285 via wheelchair. Support person present. Oriented to unit, room, information board, rooming in, admission packet and security measures. Patient verbalizes understanding.
--- NOTE | 2022-11-27 17:51 | PC.NURSE ---
Rudy Early [employer] notified of recovery QBL.
[2022-11-27] MEDS: DOCUSATE SODIUM 100 MG CAPSULE PO (17:58)
[2022-11-27] MEDS: IBUPROFEN 600 MG TABLET PO (17:58)
[2022-11-27] MEDS: BENZOCAINE 20% AER SPR (*SP) 56 GM CAN 1 SPRAY TOPICAL (19:49)
[2022-11-27] MEDS: ACETAMINOPHEN 325 MG TABLET 650 MG PO (19:50)
[2022-11-28 04:15] VITALS: BP 112/69; PULSE 63; RESP 18; TEMP 36.8; O2SAT 98
[2022-11-28] MEDS: IBUPROFEN 600 MG TABLET PO ×2 (04:16→10:35)
[2022-11-28 05:11] LABS: Hematocrit 35.7 % (37.0-47.0)
--- NOTE | 2022-11-28 07:37 | WPDANLDPN2 ---
Anes-Prog Note L&D Date/Time: 11/28/22 07:37 Comfortable throughout: labor and delivery Neuraxial method: epidural Epidural/Spinal procedure site: clean & non-tender Neuro status: Neuro function grossly intact. Cardiovascular status: normal Respiratory status: normal Airway patency: baseline Mental status: baseline Post-Op hydration status: normal Vital Signs: Last Vital Signs Temp 36.8 C 11/28/22 04:15 Pulse 63 11/28/22 04:15 Resp 18 11/28/22 04:15 BP 112/69 11/28/22 04:15 Pulse Ox 98 11/28/22 04:15 O2 Del Method Room Air 11/28/22 04:15 Pain score (VAS): Patient asleep, no nonverbal signs of pain present at this time. I/O: Intake & Output 11/27/22 11/27/22 11/28/22 15:59 23:59 07:59 Intake Total 1500 500 Output Total 597 Balance 1500 -97 Post-procedural complaints: none Patient feedback: Patient satisfied with anesthetic care.
--- NOTE | 2022-11-28 08:00 | PC.NURSE ---
PT introductions made and plan of care discussed per post , pain management, bottle feeding, daily care activities and pending discharge to home. PT and spouse both recipients of such instructions and no barriers to learning identified at this time. PT received such instructions per one to one discussion, mom baby care guide and demonstrations this shift. PT verbalized understanding of such care.
[2022-11-28 08:30] VITALS: BP 111/68; PULSE 54; RESP 16; TEMP 36.9; O2SAT 100
--- NOTE | 2022-11-28 08:33 | PM.OBPNVD ---
OB - PN: Subj Subjective Date/time seen: 11/28/22 08:33 Patient comments: no complaints, pain well controlled, incisional pain, tolerating diet and flatus present OB - PN: Obj Data Labs 11/28/22 04:17 Labs: Laboratory Results - last 24 hr 11/27/22 11/28/22 06:45 04:17 Hgb 11.0 L Hct 35.7 L RPR Non-reactive OB - PN A/P Plan day: 1 Plan: routine care Comments: No problems, routine care Time Spent With Patient Time: Total time spent is greater than 50% in coordination of care (as documented) at patient's floor/unit and/or counseling patient: Exam Const: General: comfortable, no acute distress and alert Resp: Effort & Inspection: normal respiratory effort Auscultation: no crackles, no rales and no rhonchi Cardio: Rate: regular rate Heart sounds: no click, no murmurs and no rubs GI: Inspection: non-distended GI Palp: No Tenderness to palpation present (GI) Auscultation: normal bowel sounds Other: Incision - CDI Extrem: General: normal to inspection, no pedal edema and no calf tenderness
--- NOTE | 2022-11-28 08:35 | PM.OBDSVD ---
DS: Admitting Diagnosis Discharge Date 11/28/22 Admitting Diagnosis term OB - DS: Summary OB Procedures : None OB Procedures Intrapartum: Spontaneous Vag Delivery OB Procedures: : None Time Spent with Patient Time attestation: Total time spent providing and/or coordinating discharge services: DS: Data Data Completed and Pending Labs on day of discharge: Labs from last 24 hours 11/28/22 11/27/22 04:17 06:45 Hgb 11.0 L Hct 35.7 L RPR Non-reactive Discharge Plan Discharge Discharging Clinician: Duran Snell Patient Disposition: Home, Self-Care Activity: pelvic rest Diet: regular Patient Instructions: Antibiotic Form Stand Alone Forms: General Discharge Information Follow-up/Referrals: Duran Snell MD [Physician] - Discharge Medications: No Action aspirin 81 mg Tablet 81 mg PO DAILY Vitamin 1 tab-cap PO DAILY cetirizine [Zyrtec] 10 mg Tablet 10 mg PO DAILY Date of admission: 11/27/22 06:32 Primary Care Provider: ShanMichelle Admitting Provider: Duran Snell Attending physician on admission: Duran Snell Condition: Stable
[2022-11-28 10:30] VITALS: PULSE 54; RESP 16; O2SAT 100
[2022-11-28] MEDS: DOCUSATE SODIUM 100 MG CAPSULE PO (10:35)
[2022-11-28 12:30] VITALS: BP 118/66; PULSE 82; RESP 16; TEMP 36.8; O2SAT 100
[2022-11-29 10:44] VITALS: BP 103/66; PULSE 79; RESP 18; TEMP 36.9; O2SAT 100
== END 2022-11-28 17:12 | disposition home or self-care (01) | DRG 560 ==
LOC: ANHLDR 06:37 → ANHOB2 17:30
PROVIDERS: Advanced Practice Midwife; Admitting Provider Obstetrics & Gynecology; PCP Physician Assistant; Visit Provider Obstetrics & Gynecology
DX: O69.81X0 Labor and delivery complicated by cord around neck, without compression, not applicable or unspecified (principal); Z37.0 Single live birth; Z3A.39 39 weeks gestation of pregnancy; O70.0 First degree perineal laceration during delivery
CPT/HCPCS: 36415; 85014; 85018; 85025; 86592; 86850; 86900; 86901; A9270; J2405; J2590; J2795; J3010; J7120

== ENCOUNTER 2024-05-02 17:31 | Emergency (ER) | payer OTHER, SELFPAY ==
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
[2024-05-02 17:43] VITALS: BP 116/68; PULSE 85; RESP 16; TEMP 37; O2SAT 100
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
== END 2024-05-02 18:49 | disposition home or self-care (01) ==
PROVIDERS: Emergency Provider Nurse Practitioner Family; PCP Physician Assistant
DX: S39.012A Strain of muscle, fascia and tendon of lower back, initial encounter (principal); V49.40XA Driver injured in collision with unspecified motor vehicles in traffic accident, initial encounter; E66.01 Morbid (severe) obesity due to excess calories; Z68.41 Body mass index [BMI] 40.0-44.9, adult
CPT/HCPCS: 72100; 99213; G0463